=== PATIENT | female | born 1995 | race African-American/Black ===

== ENCOUNTER 2017-01-17 09:42 | Emergency (ER) | payer MEDICAID ==
[~2017-01-17] VITALS: Ht 167.6 cm; Wt 55.0 kg
[~2017-01-17 09:42] MED LIST: ADVI200C9 PO; AUGM875T PO
[2017-01-17 09:44] VITALS: BP 131/74; PULSE 77; RESP 16; TEMP 98.6; O2SAT 97
[2017-01-17] MEDS ORDERED: PRENATAL VITAMIN PO (10:17)
[2017-01-17 11:29] LABS: AUTOMATED NEUTROPHIL # 5.8 TH/MM3 (1.8-7.7); BASOPHIL % 0.2 % (0.0-2.0); EOSINOPHIL # 0.1 TH/MM3 (0-0.4); EOSINOPHIL % 0.6 % (0.0-4.0); HEMATOCRIT 39.3 % (35.0-46.0); HEMO FLAGS DIFF FINAL; LYMPH % 23.3 % (9.0-44.0); MEAN CELL VOLUME 98.2 FL (80.0-100.0); MEAN CORPUSCULAR HEMOGLOBIN 33.9 PG (27.0-34.0); MEAN CORPUSCULAR HGB CONC 34.5 % (32.0-36.0); MONO % 7.4 % (0.0-8.0); NEUT % 68.5 % (16.0-70.0); PLATELET COUNT 286 TH/MM3 (150-450); RED BLOOD COUNT 4.01 MIL/MM3 (4.00-5.30); RED CELL DISTRIBUTION WIDTH 12.8 % (11.6-17.2); WHITE BLOOD COUNT 8.5 TH/MM3 (4.0-11.0)
[2017-01-17 11:35] LABS: BACTERIA, URINE OCC /hpf; BLOOD, URINE MOD (NEG); GLUCOSE,URINE NEG (NEG); KETONE, URINE NEG (NEG); MUCUS URINE FEW /lpf (OCC); NITRITE,URINE NEG (NEG); PH, URINE 6.5 (5.0-8.5); SQUAMOUS EPITHELIAL CELL URINE 3 /hpf (0-5); URINE COLOR YELLOW (YELLW/STRAW)
[2017-01-17 11:36] LABS: COMMENT (UR) CULT NOT INDICATED; CULTURE IF INDICATED CULT NOT INDICATED
[2017-01-17] MEDS ORDERED: CEPH-459 PO ×2 (11:51→13:26)
--- NOTE | 2017-01-17 11:51 | PD ---
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 She also reports abdominal cramping for about 4 hours. Severity moderate. Location left lower abdomen. She reports last menstruation was about 8 weeks ago and she is known to be . She has an appointment with obstetrics this afternoon about 5 hours time. 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 No prior ultrasound has been performed. She reports clots of blood. No fever or vomiting. She is 1. She denies past medical history. No hematuria. PFSH Past Medical History Medical History: Denies Significant Hx Influenza Vaccination: No ?: LMP: OCT ? Past Surgical History Surgical History: No Previous Surgery Social History Alcohol Use: No Tobacco Use: Yes (PRE- (1 CIG/WEEK)) Substance Use: Yes (MARIJUANA) Allergies-Medications (Allergen,Severity, Reaction): Coded Allergies: No Known Allergies (Unverified , 01/17/17) Reported Meds & Prescriptions Reported Meds & Active Scripts Active Percocet (Oxycodone-Acetaminophen) 5-325 mg Tab 1-2 Tab PO Q6H PRN Keflex (Cephalexin) 250 Mg Cap 250 Mg PO Q6H 3 Days Reported [ Vitamin] Unknown Dose PO DAILY Review of Systems Except as stated in HPI: all other systems reviewed are Neg General / Constitutional: No: Fever Physical Exam Narrative GENERAL: 21 yo F, WNWD, NAD SKIN: Warm and dry. HEAD: Atraumatic. Normocephalic. EYES: Pupils equal and round. No scleral icterus. No injection or drainage. ENT: No nasal bleeding or discharge. Mucous membranes pink and moist. NECK: Trachea midline. No JVD. CARDIOVASCULAR: Regular rate and rhythm. RESPIRATORY: No accessory muscle use. Clear to auscultation. Breath sounds equal bilaterally. GASTROINTESTINAL: Abdomen soft, non-tender, nondistended. Hepatic and splenic margins not palpable. MUSCULOSKELETAL: Extremities without clubbing, cyanosis, or edema. No obvious deformities. NEUROLOGICAL: Awake and alert. No obvious cranial nerve deficits. Motor grossly within normal limits. Five out of 5 muscle strength in the arms and legs. Normal speech. PSYCHIATRIC: Appropriate mood and affect; insight and judgment normal. Data Data Last Documented VS Vital Signs Date Time Temp Pulse Resp B/P (MAP) Pulse Ox O2 Delivery O2 Flow Rate FiO2 01/17/17 09:44 98.6 77 16 131/74 (93) 97 VS reviewed Orders Orders Complete Blood Count With Diff (01/17/17 10:34) Comprehensive Metabolic Panel (01/17/17 10:34) Complete Rh (01/17/17 10:34) Urinalysis - C+S If Indicated (01/17/17 10:34) Iv Access Insert/Monitor (01/17/17 10:34) Beta Hcg (Quant/Titer) (01/17/17 10:34) Us Pelvis (Ques Pr/Ect)W Trans (01/17/17 ) Ed Discharge Order (01/17/17 13:43) Labs Laboratory Tests Test 01/17/17 10:45 White Blood Count 8.5 TH/MM3 Red Blood Count 4.01 MIL/MM3 Hemoglobin 13.6 GM/DL Hematocrit 39.3 % Mean Corpuscular Volume 98.2 FL Mean Corpuscular Hemoglobin 33.9 PG Mean Corpuscular Hemoglobin Concent 34.5 % Red Cell Distribution Width 12.8 % Platelet Count 286 TH/MM3 Mean Platelet Volume 8.0 FL Neutrophils (%) (Auto) 68.5 % Lymphocytes (%) (Auto) 23.3 % Monocytes (%) (Auto) 7.4 % Eosinophils (%) (Auto) 0.6 % Basophils (%) (Auto) 0.2 % Neutrophils # (Auto) 5.8 TH/MM3 Lymphocytes # (Auto) 2.0 TH/MM3 Monocytes # (Auto) 0.6 TH/MM3 Eosinophils # (Auto) 0.1 TH/MM3 Basophils # (Auto) 0.0 TH/MM3 CBC Comment DIFF FINAL Differential Comment Urine Color YELLOW Urine Turbidity HAZY Urine pH 6.5 Urine Specific [place] 1.023 Urine Protein NEG mg/dL Urine Glucose (UA) NEG mg/dL Urine Ketones NEG mg/dL Urine Occult Blood MOD Urine Nitrite NEG Urine Bilirubin NEG Urine Urobilinogen LESS THAN 2.0 MG/DL Urine Leukocyte Esterase SMALL Urine RBC 3 /hpf Urine WBC 4 /hpf Urine Squamous Epithelial Cells 3 /hpf Urine Bacteria OCC /hpf Urine Mucus FEW /lpf Microscopic Urinalysis Comment CULT NOT INDICATED Blood Urea Nitrogen 6 MG/DL Creatinine 0.59 MG/DL Random Glucose 85 MG/DL Total Protein 7.5 GM/DL Albumin 3.6 GM/DL Calcium Level 8.8 MG/DL Alkaline Phosphatase 62 U/L Aspartate Amino Transf (AST/SGOT) 11 U/L Alanine Aminotransferase (ALT/SGPT) 22 U/L Total Bilirubin 0.2 MG/DL Sodium Level 137 MEQ/L Potassium Level 3.8 MEQ/L Chloride Level 106 MEQ/L Carbon Dioxide Level 26.0 MEQ/L Anion Gap 5 MEQ/L Estimat Glomerular Filtration Rate 153 ML/MIN Human Chorionic Gonadotropin, Quant 410 MIU/ML MDM Medical Decision Making Medical Screen Exam Complete: Yes Emergency Medical Condition: Yes Medical Record Reviewed: Yes Differential Diagnosis IUP, UTI, ectopic , ov torsion, appendicitis, TOA, cervicitis, BV, Trichomoniasis, ov cyst, hernia, mittelschmerz, pain from menstruation Narrative Course Urine: Bacteriuria moderate occult blood CBC & BMP Diagram 01/17/17 10:45 Total Protein 7.5, Albumin 3.6, Calcium Level 8.8, Alkaline Phosphatase 62, Aspartate Amino Transf (AST/SGOT) 11 L, Alanine Aminotransferase (ALT/SGPT) 22, Total Bilirubin 0.2 HCG 410 Pain control return precautions discussed The patient is resting comfortably and feels better, is alert and in no distress. The patients results and examination findings were discussed. The repeat examination is unremarkable and benign. The history, exam, diagnostic testing, and current condition do not suggest any significant pathology to warrant further testing, continued ED treatment, admission, or surgical evaluation at this point. The vital signs have been stable. The patient does not have uncontrollable pain, intractable vomiting, or other significant symptoms. The patient's condition is stable and appropriate for discharge. The patient will pursue further outpatient evaluation with a primary care physician or other designated or consulting physician as indicated in the discharge instructions. The patient expressed understanding and was agreeable with this plan. Diagnosis Primary Impression: Bacteriuria, asymptomatic in Additional Impression: demise due to miscarriage Referrals: [facility] Additional Instructions: You have a choice when it comes to health care, and we are glad that you chose [facility]. Hopefully, we have met your expectations on today's visit. You are welcome to return to [facility] at any time, as we are committed to meeting the health care needs of our community. Med/Other Pt SpecificInfo: Prescription(s) given Scripts Oxycodone-Acetaminophen (Percocet) 5-325 mg Tab 1-2 TAB PO Q6H Y for PAIN SCALE 6 TO 10, #20 TAB 0 Refills Prov: Wellington Lieberman MD 01/17/17 Cephalexin (Keflex) 250 Mg Cap 250 MG PO Q6H for Infection for 3 Days, #12 CAP 0 Refills Prov: Wellington Lieberman MD 01/17/17 Disposition: 01 DISCHARGE HOME Condition: Stable Wellington Lieberman MD Jan 17, 2017 11:51
[2017-01-17 11:53] LABS: ALT (GPT) 22 U/L (10-53); ANION GAP 5 MEQ/L (5-15); AST (GOT) 11 U/L (15-37); BLOOD UREA NITROGEN 6 MG/DL (7-18); CHLORIDE 106 MEQ/L (98-107); GLOMERULAR FILTRATION RATE 153 ML/MIN (>89); POTASSIUM 3.8 MEQ/L (3.5-5.1); SODIUM (NA) 137 MEQ/L (136-145)
[2017-01-17 11:57] LABS: ALKALINE PHOSPHATASE 62 U/L (45-117); BETA HCG QUANT 410 MIU/ML (0-5); TOTAL BILIRUBIN ADULT 0.2 MG/DL (0.2-1.0)
--- NOTE | 2017-01-17 13:35 | RADRPT ---
EXAM DATE/TIME: 01/17/2017 12:38 [place] COMPARISON: No previous studies available for comparison. INDICATIONS : Pelvic pain and spotting. LAB(S): Beta-[facility] MEDICAL HISTORY : . SURGICAL HISTORY : ENCOUNTER: Initial ACUITY: 2 days PAIN SCORE: 0/10 LOCATION: Bilateral pelvis MEASUREMENTS: UTERUS: 12.4 x 8.3 x 6.9 cm ENDOMETRIAL STRIPE: 10 mm RIGHT OVARY: 3.1 x 3.1 x 1.8 cm LEFT OVARY: 5.4 x 3.9 x 1.1 cm FREE FLUID: No CROWN RUMP LENGTH: 3.5 cm = 10 WKS 3 DAYS FHR: 0 BPM FINDINGS: UTERUS: There is a single intrauterine gestation. Gestational sac is somewhat irregular and lobulated in cont our. There is a pole with crown-rump length of 3.51 cm which equals 10 weeks 3 days gestational age. This is discordant with the quantitative beta hCG. No heart rate activity is discernible. RIGHT OVARY: Ovary contains no mass or significant cystic lesion. LEFT OVARY: Ovary contains no mass or significant cystic lesion. MISCELLANEOUS: No free fluid. CONCLUSION: 1. demise. Con Sabillon Jr., MD on January 17, 2017 at 13:30 Board Certified Radiologist. This report was verified electronically.
[2017-01-17] MEDS ORDERED: PERC5TAB12 PO (13:49)
== END 2017-01-17 14:23 | disposition home or self-care (01) ==
LOC: NEPD 09:42
DX: O28.8 Other abnormal findings on antenatal screening of mother (principal); O03.9 Complete or unspecified spontaneous abortion without complication; O99.331 Smoking (tobacco) complicating pregnancy, first trimester; Z79.899 Other long term (current) drug therapy; Z34.91 Encounter for supervision of normal pregnancy, unspecified, first trimester
CPT/HCPCS: 76700; 76817; 80053; 81001; 84702; 85025; 86901; 99284